=== PATIENT | male | born 1935 | race Caucasian/White ===

== ENCOUNTER 2017-12-04 01:09 | Observation (INO) | payer OTHER ==
[~2017-12-04] VITALS: Ht 185.4 cm; Wt 89.0 kg
[~2017-12-04 01:09] MED LIST: NAPR220 PO; RANI150 PO
[2017-12-04 02:14] LABS: Alanine Aminotransfer (ALT/SGP 19 U/L (12-78); Albumin, Blood 3.6 g/dL (3.4-5.0); Alk Phos 85 U/L (50-136); Anion Gap 7 mmol/L (6-16); Aspartate Aminotrans (AST/SGOT 17 U/L (12-37); Bilirubin, Total 0.6 mg/dL (0.1-1.0); Blood Urea Nitrogen 15 mg/dL (8-24); Bun/Creatinine Ratio 14.7 (12.0-20.0); CO2, Blood 27 mmol/L (21-32); Calcium, Blood 8.6 mg/dL (8.5-10.1); Chloride, Blood 105 mmol/L (98-108); Creatinine, Blood 1.02 mg/dL (0.60-1.20); Globulin, Blood 3.6 g/dL (2.2-4.0); Glomerular Filtration Rate >60 (60-); Glucose, Blood 113 mg/dL (70-99); Potassium, Blood 4.2 mmol/L (3.5-5.5); Sodium, Blood 139 mmol/L (136-145); Total Protein, Blood 7.2 g/dL (6.4-8.2); Troponin I <0.015 ng/mL (0.000-0.040)
[2017-12-04 02:17] LABS: BASOPHILS ABSOLUTE AUTO 0.06 K/mm3 (0.00-0.23); BASOPHILS PERCENT AUTO 1 % (0-2); EOSINOPHILS PERCENT AUTO 2 % (0-6); Hematocrit 44.6 % (37.0-53.0); Hemoglobin 15.1 g/dL (13.5-17.5); IMMATURE GRAN ABSOLUTE AUTO 0.08 K/mm3 (0.00-0.10); IMMATURE GRAN PERCENT AUTO 1 % (0-1); LYMPHOCYTES ABSOLUTE AUTO 0.95 K/mm3 (0.84-5.20); LYMPHOCYTES PERCENT AUTO 9 % (21-46); MONOCYTES PERCENT AUTO 4 % (4-13); Mean Corpuscular HGB 32.3 pg (26.0-34.0); Mean Corpuscular HGB Conc 33.9 g/dL (31.5-36.5); Mean Corpuscular Volume 96 fL (80-100); Mean Platelet Volume 11.2 fL (9.1-12.4); NEUTROPHILS ABSOLUTE AUTO 9.35 K/mm3 (1.96-9.15); NEUTROPHILS PERCENT AUTO 85 % (41-73); Platelet Count 164 K/mm3 (150-400); RDW Coefficient Variation 12.6 % (11.7-14.2); RDW Standard Deviation 43.9 fL (35.1-46.3); Red Blood Cell Count 4.67 M/mm3 (4.30-5.90); White Blood Cell Count 11.04 K/mm3 (4.00-11.30)
[2017-12-04] MEDS ORDERED: Cardizem CD 12120 MG PO (04:01)
[2017-12-04 06:16] LABS: Source, Urine Clean Catch
[2017-12-04 06:22] LABS: Bilirubin, Urine Neg (Neg); Blood, Urine Neg (Neg); Glucose Qualitative, Urine Neg (Neg); Ketones, Urine Neg (Neg); Leukocyte Esterase, Urine Neg (Neg); Nitrite, Urine Neg (Neg); Protein, Urine Neg (Neg); Specific Gravity, Urine 1.015 (1.003-1.022); Urobilinogen, Urine NORM (Normal)
[2017-12-04 06:30] LABS: BASOPHILS ABSOLUTE AUTO 0.04 K/mm3 (0.00-0.23); BASOPHILS PERCENT AUTO 1 % (0-2); EOSINOPHILS ABSOLUTE AUTO 0.08 K/mm3 (0.00-0.68); EOSINOPHILS PERCENT AUTO 1 % (0-6); Hematocrit 42.6 % (37.0-53.0); Hemoglobin 14.5 g/dL (13.5-17.5); IMMATURE GRAN ABSOLUTE AUTO 0.02 K/mm3 (0.00-0.10); IMMATURE GRAN PERCENT AUTO 0 % (0-1); LYMPHOCYTES ABSOLUTE AUTO 0.71 K/mm3 (0.84-5.20); LYMPHOCYTES PERCENT AUTO 9 % (21-46); MONOCYTES ABSOLUTE AUTO 0.55 K/mm3 (0.16-1.47); MONOCYTES PERCENT AUTO 7 % (4-13); Mean Corpuscular Volume 94 fL (80-100); Mean Platelet Volume 10.8 fL (9.1-12.4); NEUTROPHILS ABSOLUTE AUTO 6.76 K/mm3 (1.96-9.15); NEUTROPHILS PERCENT AUTO 83 % (41-73); Platelet Count 181 K/mm3 (150-400); RDW Coefficient Variation 12.6 % (11.7-14.2); RDW Standard Deviation 43.5 fL (35.1-46.3); Red Blood Cell Count 4.53 M/mm3 (4.30-5.90); White Blood Cell Count 8.16 K/mm3 (4.00-11.30)
[2017-12-04 06:30] LABS: Appearance, Urine Clear (Clear); Color, Urine Yellow (P-Yellow)
[2017-12-04 06:48] LABS: Alanine Aminotransfer (ALT/SGP 18 U/L (12-78); Albumin, Blood 3.5 g/dL (3.4-5.0); Alk Phos 80 U/L (50-136); Anion Gap 9 mmol/L (6-16); Aspartate Aminotrans (AST/SGOT 14 U/L (12-37); Bilirubin, Total 0.6 mg/dL (0.1-1.0); Blood Urea Nitrogen 13 mg/dL (8-24); Bun/Creatinine Ratio 13.8 (12.0-20.0); CO2, Blood 24 mmol/L (21-32); Calcium, Blood 8.6 mg/dL (8.5-10.1); Chloride, Blood 106 mmol/L (98-108); Creatinine, Blood 0.95 mg/dL (0.60-1.20); Globulin, Blood 3.5 g/dL (2.2-4.0); Glomerular Filtration Rate >60 (60-); Glucose, Blood 111 mg/dL (70-99); Potassium, Blood 4.1 mmol/L (3.5-5.5); Sodium, Blood 139 mmol/L (136-145)
[2017-12-05] MEDS ORDERED: ASPI81CH PO (11:38)
[2017-12-05] MEDS ORDERED: DOCU100 PO (11:38)
[2017-12-05] MEDS ORDERED: METO25 PO (11:39)
[2018-07-29] MEDS ORDERED: PROBIOTIC1 EAC1 PO (13:00)
[2018-07-29] MEDS ORDERED: B Complex #11 EACH PO (13:00)
[2018-07-29] MEDS ORDERED: ELIQUIS5 MG PO (13:00)
[2018-07-29] MEDS ORDERED: DIPH50 PO (13:00)
[2018-07-29] MEDS ORDERED: Zantac150 MG PO (13:00)
== END 2017-12-05 12:30 | disposition home or self-care (01) ==
LOC: ER 01:09 → PCU 01:10 → ICUW 01:10 → MEDS 11:45 → ENPENDDIS 12-05 10:49 → MEDS 12-05 12:30
PROVIDERS: Emergency Medicine; Internal Medicine
DX: I48.91 Unspecified atrial fibrillation (principal); R55 Syncope and collapse; G04.90 Encephalitis and encephalomyelitis, unspecified; G81.94 Hemiplegia, unspecified affecting left nondominant side; S51.012A Laceration without foreign body of left elbow, initial encounter; E86.0 Dehydration; Z96.651 Presence of right artificial knee joint; W01.10XA Fall on same level from slipping, tripping and stumbling with subsequent striking against unspecified object, initial encounter
CPT/HCPCS: 36415; 70450; 71045; 72125; 73080; 80053; 81003; 83735; 83880; 84484; 85025; 93005; 93010; 93306; 96360; 96361; 96372; 99285; G0378; J1650; J7030; Q0163; Q2038

== ENCOUNTER 2018-02-02 03:50 | Emergency (ER) | payer OTHER ==
[~2018-02-02] VITALS: Ht 185.4 cm; Wt 90.7 kg
[~2018-02-02 03:50] MED LIST changes: +ASPI81CH PO; +Cardizem CD 12120 MG PO; +DOCU100 PO; +METO25 PO
[2018-02-02] MEDS ORDERED: ELIQUIS5 MG PO (04:11)
[2018-02-02] MEDS ORDERED: Cleocin HCl300 MG PO (04:28)
== END 2018-02-02 04:40 | disposition home or self-care (01) ==
LOC: ER 03:50
DX: L03.114 Cellulitis of left upper limb (principal); Z79.899 Other long term (current) drug therapy; Z79.82 Long term (current) use of aspirin
CPT/HCPCS: 36415; 99283

== ENCOUNTER 2020-03-18 11:42 | Day surgery (SDC) | payer OTHER ==
[~2020-03-18] VITALS: Ht 182.9 cm; Wt 194.6 kg
[~2020-03-18 11:42] MED LIST changes: +B Complex #11 EACH PO; +Cleocin HCl300 MG PO; +DIPH50 PO; +ELIQUIS5 MG PO; +PROBIOTIC1 EAC1 PO; +Ranitidine HCl150 M1 PO; +SERT50 PO; +Zantac150 MG PO
--- NOTE | 2020-03-18 14:42 | NUR ---
03/18/20 1442 Jolene Call BLOCK IN RIGHT HAND INSERTED BY [facility].JST.
--- NOTE | 2020-03-18 16:20 | NUR ---
03/18/20 1620 Bella Kaplan UPON ARRIVAL TO SDU, PT URINATED 200ML OF DARK YELLOW CLEAR URINE IN URINAL. PT REQUESTED TO USE URINAL DUE TO LIMITED USE OF LEFT ARM/HAND. PH OF STROKE. EXPRESSED CONCERNS ABOUT CARING FOR HIM AT HOME, ESPECIALLY TRANSFERRING IN AND OUT OF BED. PT USUALLY USES CANE WITH RIGHT HAND HOWEVER UNABLE TO DUE TO SURGERY. DR MARCELINO CHOSE NOT TO ADMIT PT INTO [facility]ILITY AND DISCUSSED THIS WITH PT AND BEFORE SURGERY. RXS INSTRUCTED SAFE TRANSFER TECHNIQUES AND TO CALL THE DR OR GO TO THE ER IF THERE WAS A PROBLEM.
== END 2020-03-18 15:48 | disposition home or self-care (01) ==
LOC: ORSCSDS 11:42
PROVIDERS: Orthopaedic Surgery
PROC: 01N50ZZ Release Median Nerve, Open Approach (ICD-10-PCS; principal; 2020-03-18 13:45)
DX: G56.01 Carpal tunnel syndrome, right upper limb (principal); I48.91 Unspecified atrial fibrillation; Z79.01 Long term (current) use of anticoagulants; E78.5 Hyperlipidemia, unspecified; I25.10 Atherosclerotic heart disease of native coronary artery without angina pectoris; Z87.891 Personal history of nicotine dependence; I69.354 Hemiplegia and hemiparesis following cerebral infarction affecting left non-dominant side; Z79.899 Other long term (current) drug therapy
CPT/HCPCS: J0690; J2250; J2704; J3010; J7120